=== PATIENT | male | born 1960 | race Caucasian/White ===

== ENCOUNTER → 2016-11-16 | Outpatient (CLI) | payer BC ==
--- NOTE | ~2016-11-16 | MR164 ---
[facility] A Service of [facility] RADIOLOGY TEXT RESULTS PATIENT: TILA PRINGLE LOCATION: [facility] : 60 UNIT #: [id number] AGE: [address]: Jeff Campos MD SEX: M ORDER DR: [id number] [address] [address] [id number] O MR#: [id number] Acc #: [id number] NAME: TILA PRINGLE : 1960 SEX: M STUDY DATE/TIME: 11/16/2016 14:03 UNIT: [facility] ROOM: STUDY DESCRIPTION: MR Shoulder Wo Contrast Lt Attending Physician: Jeff Campos M.D. Referring Physician: Jeff Campos M.D. Ordering Physician: Jeff Campos M.D. Primary Care Physician: Ayaan Carmen M.D. MRI CENTER REPORT This report is preliminary unless electronic signature is present. EXAM MRI of the left shoulder without contrast HISTORY 56-year-old male complains of left shoulder pain, no specific injury. States was doing yard work 2-3 months ago, felt a pop. Clinical concern for rotator cuff tear. COMPARISON Left shoulder films 11/13/2016. FINDINGS Multiplanar, multiecho imaging was performed of the left shoulder utilizing a high-field magnet and dedicated protocol. Examination demonstrates moderately advanced glenohumeral joint osteoarthritis with extensive full-thickness cartilage loss humeral head and central glenoid, with a small amount of subchondral edema and cystic change. Minimal joint effusion suggests synovitis. There is a sizable multiloculated cystic collection within the axillary recess measuring up to 2.7 x 1.7 cm by approximately 1.3 cm. This extends inferior to the glenoid and axillary recess and may represent a large paralabral cyst or ganglion cyst. There is keiv-zl-byptbrwr AC joint arthropathy with extensive capsular hypertrophy particularly along the superior aspect of the AC joint. Periarticular edema suggests active inflammation. Mild supraspinatus tendinopathy. No evidence of partial or full-thickness rotator cuff tear. There is degeneration of the superior labrum and thickening and increased signal within the long tendon of the biceps compatible with biceps tendinopathy. There is extensive degenerative tear of the posterior labrum. Deltoid and extraarticular soft tissues appear normal. IMPRESSION STS. [facility] A Service of [facility] RADIOLOGY TEXT RESULTS PATIENT: TILA PRINGLE LOCATION: [facility] : 60 UNIT #: [id number] AGE: [address]: Jeff Campos MD SEX: M ORDER DR: 1. Moderate to severe glenohumeral joint osteoarthritis with extensive subchondral edema and cystic change and full-thickness cartilage loss humeral head and glenoid. 2. 2.7 cm multiloculated cystic lesion extending from the region of the axillary recess and inferior glenoid may represent a ganglion cyst or paralabral cyst. 3. Extensive degenerative tear of the superior labrum, posterior labrum. 4. Mild supraspinatus tendinopathy. 5. Biceps tendinopathy. 6. Moderate AC joint arthropathy with extensive periarticular edema. Dictated by... Blanca Alejandra M.D. THIS IS AN ELECTRONICALLY VERIFIED REPORT Blanca Alejandra M.D. at 11/18/2016 7:21 AM RENY/bulmaro TD: 11/16/2016 23:09 JOB #: [id number] MRI CENTER REPORT
== END | disposition home or self-care (01) ==
LOC: SMRI 13:41
DX: M75.102 Unspecified rotator cuff tear or rupture of left shoulder, not specified as traumatic (principal); M19.012 Primary osteoarthritis, left shoulder; M89.9 Disorder of bone, unspecified; M25.412 Effusion, left shoulder; M24.812 Other specific joint derangements of left shoulder, not elsewhere classified; M75.92 Shoulder lesion, unspecified, left shoulder; M75.22 Bicipital tendinitis, left shoulder
CPT/HCPCS: 73221